=== PATIENT | female | born 1940 | race Caucasian/White ===

== ENCOUNTER 2017-06-01 20:18 | Inpatient (IN) | payer MEDICARE ==
[2017-06-01] MEDS ORDERED: Maalox 30 mL Cup PO PRN (21:33)
[2017-06-01] MEDS ORDERED: Magnesium Hydroxide (MOM) 30 mL UDC PO PRN (21:33)
[2017-06-01 21:34] VITALS: BP 139/67
[2017-06-02] MEDS: Levothyroxine 0.1 Mg Tab PO SCH (06:43)
[2017-06-02] MEDS: Pantoprazole 40 mg EC Tab PO SCH ×2 (10:23→17:20)
[2017-06-02] MEDS: Multivitamin Tab PO SCH ×2 (10:24→17:19)
[2017-06-02] MEDS: Potassium Chloride 20 mEq ER Tab PO SCH ×2 (10:24→17:26)
[2017-06-02] MEDS: Calcium Carb/Vit D 500 mg/200 U Tab PO SCH ×2 (10:24→17:19)
--- NOTE | 2017-06-02 11:19 | Psychosocial Evaluation ---
DATE OF SERVICE: AGE: 77. SEX: Female. PHYSICIAN: Dr. Dunn. CHIEF COMPLAINT: Confusion and agitation. HISTORY OF PRESENT ILLNESS: The patient is a 77-year-old female, who was transferred from [facility] because of increased agitation and because of confusion and irritability. After the patient was cleared medically, the patient was transferred to [facility] to continue her treatment. The patient is still angry and still confused and agitated and she is still unable to provide any safe plan for self-care. PAST PSYCHIATRIC HISTORY: Not known. PAST MEDICAL HISTORY: The patient has generalized weakness, which basically because of her inability to care for herself. SOCIAL HISTORY: No known alcohol or street drug use. MENTAL STATUS EXAMINATION: The patient appears older than his stated age. Anxious. Angry. In irritable mood. Thought processes are with poverty of speech. The patient did not answer question regarding hallucinations or delusions, but seems to be preoccupied. The patient is alert and unable to assess orientation or memory at this time because of her anger and irritability. Poor insight. Poor judgment. ASSESSMENT: PRIMARY DIAGNOSIS: Unspecified psychosis. MEDICAL DIAGNOSES: 1. Thrombocytopenia. 2. Hypothyroidism. 3. Rheumatoid arthritis. TREATMENT PLAN: We will monitor the patient's behavior and condition closely. Also, try to get more information from the patient and her family in regard to her treatment. The patient also will need placement. ESTIMATED LENGTH OF STAY: 7-10 days. STRENGTHS AND WEAKNESSES: The patient's strength is not clear at this time. Weaknesses are her confusion and her ineffective coping. AFTER DISCHARGE PLAN: Outpatient treatment and followup will continue as an outpatient. CRITERIA FOR DISCHARGE: The patient will not be psychotic and will stabilize psychotropic medications and will establish outpatient treatment plans. JOB# [id number]
--- NOTE | 2017-06-02 21:56 | History & Physical ---
ADMIT DATE: 06/01/2017 CHIEF COMPLAINT: Confusion. HISTORY OF PRESENT ILLNESS: A 77-year-old female, who has been transferred from [facility] after a lengthy stay there related to presentation of septic shock and bacteremia. During her hospital stay, the patient was noted to be confused, as well as history of alcohol abuse surfaced from the daughter's visit. The patient has now been transferred to psychiatric facility for further evaluation of the patient's alcohol abuse and ongoing encephalopathy. The patient is seen in the hospital bed. She was awake and pleasant, able to answer questions appropriately, although appears somewhat forgetful and disoriented. PAST MEDICAL HISTORY: The patient has history of rheumatoid arthritis and hypothyroidism. She apparently had not been taking her medications and had hormonal imbalance when she came to the hospital. She also was in septic shock from urinary tract infection and E. coli bacteremia, and was in acute renal failure. The patient's LFTs were also abnormal, likely multifactorial. The patient's renal function has returned to normal. The LFTs and cell count as well as some electrolyte imbalance persisted and will be monitored. MEDICATIONS: As per reconciliation. ALLERGIES: The patient has multiple allergies including to antibiotics such as ZOFRAN, PENICILLIN, CLINDAMYCIN, AND QUINOLONES. She is allergic also to IODINE, PHENOTHIAZINE, CONTRAST MEDIUM. SOCIAL HISTORY: The patient has no history of tobacco or illicit drug use. The patient apparently has a long history of alcohol abuse. FAMILY HISTORY: Noncontributory. REVIEW OF SYSTEMS: IMMUNOLOGIC: The patient has no history of recurrent infection. She has been on Remicade and methotrexate, which has resulted in her immunosuppression. CARDIOVASCULAR: No heart disease. The patient does have history of hypertension. GASTROINTESTINAL: No nausea, vomiting, or diarrhea. The patient is recovering from acute hepatitis. ENDOCRINE: The patient has thyroid disorder, no diabetes. NEUROLOGIC: No seizure or stroke. She does have metabolic encephalopathy. HEMATOLOGIC: No bleeding ____ disorder. The patient had some coagulopathy related to her sepsis. PHYSICAL EXAMINATION: GENERAL: The patient is awake and alert in no acute distress. VITAL SIGNS: Temperature 97.8, pulse 76, respirations 18, blood pressure 131/72. HEENT: Pupils equally round and reactive. Sclerae anicteric. NECK: Supple. No JVD. ____. HEART: S1, S2, regular rate and rhythm. ABDOMEN: Soft, nontender, positive bowel sounds. EXTREMITIES: No clubbing, cyanosis. Trace edema. NEUROLOGIC: Moves all extremities equally, no lateralizing signs. LABORATORY DATA: The patient apparently refused blood tests today. IMPRESSION: 1. Status post Escherichia coli bacteremia. 2. Status post renal failure. 3. Abnormal LFTs secondary to acute hepatitis, likely alcohol induced. 4. Hypothyroidism. 5. Severe protein malnutrition. 6. History of alcohol abuse. 7. Possible psychiatric disorder. PLAN: Continue to monitor the patient's liver function, renal function, and cell count. She will also have repeat of her blood cultures as followup after her antibiotic treatment. JOB# [id number]
[2017-06-03] MEDS: Levothyroxine 0.1 Mg Tab PO SCH (06:37)
[2017-06-03] MEDS: Potassium Chloride 20 mEq ER Tab PO SCH ×2 (09:05→17:07)
[2017-06-03] MEDS: Calcium Carb/Vit D 500 mg/200 U Tab PO SCH (09:05)
[2017-06-03] MEDS: Pantoprazole 40 mg EC Tab PO SCH (09:05)
[2017-06-03] MEDS: Multivitamin Tab PO SCH (09:06)
[2017-06-03 13:14] LABS: % LYMPHOCYTES 21.2 % (20.0-50.0); % MONOCYTES 6.9 % (2.0-10.0); % NEUTROPHILS 68.9 % (40.0-80.0); HEMATOCRIT 25.5 % (41.0-60); HEMOGLOBIN 8.7 gm/dL (12-16); MEAN CELL VOLUME 104.5 fl (81-100); MEAN CORPUSCULAR HEMOGLOBIN 35.6 pg (27.0-31.0); MEAN CORPUSCULAR HGB CONC 34.1 pg (28.0-36.0); MEAN PLATELET VOLUME 9.6 fl; RED BLOOD COUNT 2.44 Mil/cmm (3.80-5.20); RED CELL DISTRIBUTION WIDTH 14.2 % (11.5-20.0); WHITE BLOOD COUNT 8.7 Th/cmm (4.8-10.8)
[2017-06-03 13:20] LABS: PLATELET COUNT 79 Th/cmm (150-400)
--- NOTE | 2017-06-03 13:22 | General Progress Note ---
Subjective - Review of Systems Service Date: 06/03/17 Subjective: awake and alert daughter at bedside smiling and good mood eating pizza Objective - Physical Exam Vitals and I&O: Vital Signs Temp 98 F 06/03/17 06:42 Pulse 75 06/03/17 06:42 Resp 18 06/03/17 06:42 BP 145/69 06/03/17 06:42 Pulse Ox 97 06/03/17 06:42 Intake & Output 06/02/17 06/03/17 06/03/17 18:59 06:59 18:59 Intake Total 120 Balance 120 Intake: Oral 120 Other: # Voids 3 Active Medications: Current Medications Acetaminophen (Tylenol) 650 mg PO Q4HR PRN PRN Reason: Temp above 100 Stop: 07/31/17 21:32 Al Hydrox/Mg Hydrox/Simethicone (Maalox) 30 ml PO Q4HR PRN PRN Reason: GI DISTRESS Stop: 07/31/17 21:32 Calcium/Vitamin D (Oscal W/Vitamin D) 1 tab PO DAILY [facility] Stop: 08/01/17 08:59 Last Admin: 06/03/17 09:05 Dose: 1 tab Ibuprofen (Motrin) 600 mg PO Q6HR PRN PRN Reason: Pain (Mild) Stop: 08/01/17 00:00 Levothyroxine Sodium (Synthroid) 0.1 mg PO QDAC [facility] Stop: 08/01/17 07:29 Last Admin: 06/03/17 06:37 Dose: 0.1 mg Magnesium Hydroxide (Milk Of Magnesia) 30 ml PO HS PRN PRN Reason: Constipation Megestrol Acetate (Megace) 40 mg PO DAILY [facility] PRN Reason: Protocol Stop: 08/01/17 08:59 Last Admin: 06/03/17 09:06 Dose: 40 mg Multivitamins/Vitamin C (Theragran) 1 tab PO DAILY [facility] Stop: 08/01/17 08:59 Last Admin: 06/03/17 09:06 Dose: 1 tab Pantoprazole Sodium (Protonix) 40 mg PO DAILY [facility] Stop: 08/01/17 08:59 Last Admin: 06/03/17 09:05 Dose: 40 mg Potassium Chloride (Klor-Con) 40 meq PO BID [facility] Stop: 08/01/17 08:59 Last Admin: 06/03/17 09:05 Dose: 40 meq Quetiapine Fumarate (Seroquel) 12.5 mg PO TID [facility] PRN Reason: Protocol Stop: 08/01/17 08:59 Last Admin: 06/03/17 09:06 Dose: 12.5 mg General: Alert, No acute distress HEENT: Atraumatic, PERRLA Neck: Supple, JVD Cardiovascular: Regular rate, Normal S1, Normal S2 Lungs: Clear to auscultation Abdomen: Bowel sounds, Soft Extremities: Edema Neurological: Cranial nerves 3-12 NL Psych/Mental Status: Mood NL Assessment/Plan - Assessment Assessment: s/p septic shock Etoh abuse hypothyroidism thrombocytopenia anemia abn LFT's encephalopathy - Plan Plan: cont current treatment awaiting blood test results d/w daughter
[2017-06-03 13:33] LABS: ALB/GLOB RATIO 0.7 (1.0-1.8); ALKALINE PHOSPHATASE 200 U/L (34-104); ANION GAP 9.7 (7.0-16.0); BILIRUBIN,TOTAL 1.8 mg/dL (0.3-1.0); BUN - UREA NITROGEN 7 mg/dL (7-25); CALCIUM SERUM 6.3 mg/dL (8.6-10.3); CARBON DIOXIDE 21.7 mEq/L (21.0-31.0); CHLORIDE 114 mEq/L (98-107); CREATININE - SERUM 0.5 mg/dL (0.6-1.2); GLUCOSE 84 mg/dL (70-105); POTASSIUM SERUM 3.4 mEq/L (3.5-5.1); SGOT 70 U/L (13-39); SGPT/ALT 59 U/L (7-52); SODIUM SERUM 142 mEq/L (136-145)
--- NOTE | 2017-06-03 20:41 | Progress Notes ---
DATE: 06/03/2017 SUBJECTIVE: Chart reviewed and the patient interviewed. Also discussed the patient's condition with the staff and reviewed records and labs. The patient continues to be confused and still seems to be disoriented. The patient also is still angry and is still in irritable mood and easily agitated. The patient also is minimizing her problems and she is suspicious and is paranoid. She also is easily agitated and irritable and is uncooperative with the staff. On the other hand, the patient is compliant with taking her medications with no side effects of medications. The patient was started on Seroquel in a dose of 12.5 mg 3 times a day with no side effects. ASSESSMENT: The patient is still psychotic and still considered to be gravely disabled. TREATMENT PLAN: Continue monitoring her behavior and her condition closely. Also, continue to work on her ineffective coping and her confusion. Also, working on discharge plans and possible placement issue. I spoke with the family when they were in [facility] and they are in agreement that the patient will need placement and will work on that with the patient, as well as her family. JOB# [id number]
[2017-06-04] MEDS: Levothyroxine 0.1 Mg Tab PO SCH (06:34)
[2017-06-04] MEDS: Potassium Chloride 20 mEq ER Tab PO SCH ×2 (08:27→16:22)
[2017-06-04] MEDS: Multivitamin Tab PO SCH ×2 (08:28→08:36)
[2017-06-04] MEDS: Pantoprazole 40 mg EC Tab PO SCH (08:28)
[2017-06-04] MEDS: Calcium Carb/Vit D 500 mg/200 U Tab PO SCH (08:28)
--- NOTE | 2017-06-04 21:48 | Progress Notes ---
DATE: 06/04/2017 SUBJECTIVE: Chart reviewed and the patient interviewed. Also discussed the patient's condition with the staff and reviewed records and labs. The patient is still delusional and paranoid. The patient today was thinking that "people are messing with my bed." The patient said that are two men, who came in the middle of the night to her room and they were messing with her bed and playing with her bed. She denies any body touch or any accuse issues, but she thought that there was somebody in her room. She also continued to be suspicious and continued to be paranoid. ASSESSMENT: The patient is still psychotic. TREATMENT PLAN: We will continue monitoring her behavior and her condition closely. Also, continue Seroquel at a dose of 12.5 mg 3 times a day and adjusting the dose. Also discussed with binder caser possible placement issue and discharge plans; and we will continue to follow up. JOB# [id number]
[2017-06-05] MEDS: Levothyroxine 0.1 Mg Tab PO SCH (06:32)
[2017-06-05] MEDS: Calcium Carb/Vit D 500 mg/200 U Tab PO SCH (09:14)
[2017-06-05] MEDS: Multivitamin Tab PO SCH (09:14)
[2017-06-05] MEDS: Potassium Chloride 20 mEq ER Tab PO SCH ×2 (09:14→17:21)
[2017-06-05] MEDS: Pantoprazole 40 mg EC Tab PO SCH (09:16)
--- NOTE | 2017-06-05 15:01 | Internal Medicine Prog Note ---
Internal Medicine Subjective - Subjective Service Date: 06/05/17 Patient seen and examined:: with staff Patient is:: awake, verbal, talking Per staff patient has:: no adverse event Internal Medicine Objective - Results Result Diagrams: 06/03/17 13:00 06/03/17 13:00 Recent Labs: Laboratory Last Values WBC 8.7 Th/cmm (4.8-10.8) 06/03/17 13:00 RBC 2.44 Mil/cmm (3.80-5.20) L 06/03/17 13:00 Hgb 8.7 gm/dL (12-16) L 06/03/17 13:00 Hct 25.5 % (41.0-60) L 06/03/17 13:00 MCV 104.5 fl (81-100) H 06/03/17 13:00 MCH 35.6 pg (27.0-31.0) H 06/03/17 13:00 MCHC Differential 34.1 pg (28.0-36.0) 06/03/17 13:00 RDW 14.2 % (11.5-20.0) 06/03/17 13:00 Plt Count 79 Th/cmm (150-400) L 06/03/17 13:00 MPV 9.6 fl 06/03/17 13:00 Neutrophils % 68.9 % (40.0-80.0) 06/03/17 13:00 Lymphocytes % 21.2 % (20.0-50.0) 06/03/17 13:00 Monocytes % 6.9 % (2.0-10.0) 06/03/17 13:00 Eosinophils % 3.0 % (0.0-5.0) 06/03/17 13:00 Basophils % 0.0 % (0.0-2.0) 06/03/17 13:00 Sodium 142 mEq/L (136-145) 06/03/17 13:00 Potassium 3.4 mEq/L (3.5-5.1) L 06/03/17 13:00 Chloride 114 mEq/L (98-107) H 06/03/17 13:00 Carbon Dioxide 21.7 mEq/L (21.0-31.0) 06/03/17 13:00 Anion Gap 9.7 (7.0-16.0) 06/03/17 13:00 BUN 7 mg/dL (7-25) 06/03/17 13:00 Creatinine 0.5 mg/dL (0.6-1.2) L 06/03/17 13:00 Est GFR ( Amer) TNP 06/03/17 13:00 Est GFR (Non-Af Amer) TNP 06/03/17 13:00 BUN/Creatinine Ratio 14.0 06/03/17 13:00 Glucose 84 mg/dL (70-105) 06/03/17 13:00 Calcium 6.3 mg/dL (8.6-10.3) L 06/03/17 13:00 Total Bilirubin 1.8 mg/dL (0.3-1.0) H 06/03/17 13:00 AST 70 U/L (13-39) H 06/03/17 13:00 ALT 59 U/L (7-52) H 06/03/17 13:00 Alkaline Phosphatase 200 U/L (34-104) H 06/03/17 13:00 Ammonia 39 umol/L (16-53) 06/03/17 13:00 Total Protein 5.6 gm/dL (6.0-8.3) L 06/03/17 13:00 Albumin 2.3 gm/dL (3.7-5.3) L 06/03/17 13:00 Globulin 3.3 gm/dL 06/03/17 13:00 Albumin/Globulin Ratio 0.7 (1.0-1.8) L 06/03/17 13:00 - Physical Exam Vitals and I&O: Vital Signs Temp 98.5 F 06/05/17 06:33 Pulse 76 06/05/17 06:33 Resp 19 06/05/17 06:33 BP 145/73 06/05/17 06:33 Pulse Ox 98 06/05/17 06:33 Intake & Output 06/04/17 06/05/17 06/05/17 18:59 06:59 18:59 Intake Total 960 360 Balance 960 360 Intake: Oral 960 360 Other: # Voids 3 2 # Bowel Movements 1 Active Medications: Current Medications Acetaminophen (Tylenol) 650 mg PO Q4HR PRN PRN Reason: Temp above 100 Stop: 07/31/17 21:32 Last Admin: 06/03/17 20:56 Dose: 650 mg Al Hydrox/Mg Hydrox/Simethicone (Maalox) 30 ml PO Q4HR PRN PRN Reason: GI DISTRESS Stop: 07/31/17 21:32 Calcium/Vitamin D (Oscal W/Vitamin D) 1 tab PO DAILY [facility] Stop: 08/01/17 08:59 Last Admin: 06/05/17 09:14 Dose: Not Given Ibuprofen (Motrin) 600 mg PO Q6HR PRN PRN Reason: Pain (Mild) Stop: 08/01/17 00:00 Levothyroxine Sodium (Synthroid) 0.1 mg PO QDAC [facility] Stop: 08/01/17 07:29 Last Admin: 06/05/17 06:32 Dose: 0.1 mg Magnesium Hydroxide (Milk Of Magnesia) 30 ml PO HS PRN PRN Reason: Constipation Megestrol Acetate (Megace) 40 mg PO DAILY [facility] PRN Reason: Protocol Stop: 08/01/17 08:59 Last Admin: 06/05/17 09:14 Dose: 40 mg Multivitamins/Vitamin C (Theragran) 1 tab PO DAILY [facility] Stop: 08/01/17 08:59 Last Admin: 06/05/17 09:14 Dose: Not Given Pantoprazole Sodium (Protonix) 40 mg PO DAILY [facility] Stop: 08/01/17 08:59 Last Admin: 06/05/17 09:16 Dose: Not Given Potassium Chloride (Klor-Con) 40 meq PO BID [facility] Stop: 08/01/17 08:59 Last Admin: 06/05/17 09:14 Dose: 40 meq Quetiapine Fumarate (Seroquel) 12.5 mg PO TID [facility] PRN Reason: Protocol Stop: 08/01/17 08:59 Last Admin: 06/05/17 14:25 Dose: 12.5 mg General: alert HEENT: NC/AT, PERRLA, EOMI, anicteric sclerae, throat clear Neck: Supple, No JVD, No thyromegaly, +2 carotid pulse wo bruit, No LAD Lungs: CTAB Cardiovascular: RRR, Normal S1, Normal S2, without murmur Abdomen: soft, non-tender, non-distended Extremities: clear Neurological: no change Internal Medicine Assmt/Plan - Assessment Assessment: 1.HYPOTHYROIDISIM. 2.ANEMIA. \3.PSYCHOSIS. - Plan Plan: CONTINUE ON CURRENT MEDICATION AND DIET.
--- NOTE | 2017-06-05 21:33 | Progress Notes ---
DATE: 06/05/2017 SUBJECTIVE: Chart reviewed and the patient interviewed. Also discussed the patient's condition with the staff and reviewed records and labs. The patient continued to be delusional, suspicious, and paranoid. The patient also is still thinking that people are trying to abuse her and harm her. She also is still actively responding to stimuli. She also is staying alone by herself. She is forgetful and needs lots of redirections. ASSESSMENT: The patient is still forgetful and considered to be gravely disabled. TREATMENT PLAN: We will continue to monitor her behavior and her condition closely. Also, continue to work on her ineffective coping and on her psychosis and her placement issue. [facility]# [id number]
[2017-06-06] MEDS: Levothyroxine 0.1 Mg Tab PO SCH (06:30)
[2017-06-06] MEDS: Calcium Carb/Vit D 500 mg/200 U Tab PO SCH (08:34)
[2017-06-06] MEDS: Potassium Chloride 20 mEq ER Tab PO SCH ×2 (08:35→17:25)
[2017-06-06] MEDS: Pantoprazole 40 mg EC Tab PO SCH (08:36)
[2017-06-06] MEDS: Multivitamin Tab PO SCH (08:42)
--- NOTE | 2017-06-06 18:13 | Progress Notes ---
DATE: 06/06/2017 SUBJECTIVE: Chart reviewed and the patient interviewed. Also discussed the patient's condition with the staff and reviewed records and labs. The patient is still in a depressed mood and she is still isolative. The patient also is feeling hopeless and is still having difficulty expressing herself or verbalizing her feelings. She also is still withdrawn. She also still needs redirections. Otherwise, the patient is compliant with taking her medications with no side effects of medications. The patient is slightly shaky today. She also seems to be slightly sedated. ASSESSMENT: The patient is still psychotic and needs close monitoring. Also, working on discharge plans and placement issue. TREATMENT PLAN: We will continue monitoring her behavior and her condition closely. Also, we will change Seroquel to 12.5 mg twice a day and we will continue to follow up closely. JOB# [id number]
--- NOTE | 2017-06-06 19:31 | Internal Medicine Prog Note ---
Internal Medicine Subjective - Subjective Service Date: 06/06/17 Patient seen and examined:: without staff Patient is:: awake, verbal, talking Per staff patient has:: no adverse event Internal Medicine Objective - Results Result Diagrams: 06/03/17 13:00 06/03/17 13:00 Recent Labs: Laboratory Last Values WBC 8.7 Th/cmm (4.8-10.8) 06/03/17 13:00 RBC 2.44 Mil/cmm (3.80-5.20) L 06/03/17 13:00 Hgb 8.7 gm/dL (12-16) L 06/03/17 13:00 Hct 25.5 % (41.0-60) L 06/03/17 13:00 MCV 104.5 fl (81-100) H 06/03/17 13:00 MCH 35.6 pg (27.0-31.0) H 06/03/17 13:00 MCHC Differential 34.1 pg (28.0-36.0) 06/03/17 13:00 RDW 14.2 % (11.5-20.0) 06/03/17 13:00 Plt Count 79 Th/cmm (150-400) L 06/03/17 13:00 MPV 9.6 fl 06/03/17 13:00 Neutrophils % 68.9 % (40.0-80.0) 06/03/17 13:00 Lymphocytes % 21.2 % (20.0-50.0) 06/03/17 13:00 Monocytes % 6.9 % (2.0-10.0) 06/03/17 13:00 Eosinophils % 3.0 % (0.0-5.0) 06/03/17 13:00 Basophils % 0.0 % (0.0-2.0) 06/03/17 13:00 Sodium 142 mEq/L (136-145) 06/03/17 13:00 Potassium 3.4 mEq/L (3.5-5.1) L 06/03/17 13:00 Chloride 114 mEq/L (98-107) H 06/03/17 13:00 Carbon Dioxide 21.7 mEq/L (21.0-31.0) 06/03/17 13:00 Anion Gap 9.7 (7.0-16.0) 06/03/17 13:00 BUN 7 mg/dL (7-25) 06/03/17 13:00 Creatinine 0.5 mg/dL (0.6-1.2) L 06/03/17 13:00 Est GFR ( Amer) TNP 06/03/17 13:00 Est GFR (Non-Af Amer) TNP 06/03/17 13:00 BUN/Creatinine Ratio 14.0 06/03/17 13:00 Glucose 84 mg/dL (70-105) 06/03/17 13:00 Calcium 6.3 mg/dL (8.6-10.3) L 06/03/17 13:00 Total Bilirubin 1.8 mg/dL (0.3-1.0) H 06/03/17 13:00 AST 70 U/L (13-39) H 06/03/17 13:00 ALT 59 U/L (7-52) H 06/03/17 13:00 Alkaline Phosphatase 200 U/L (34-104) H 06/03/17 13:00 Ammonia 39 umol/L (16-53) 06/03/17 13:00 Total Protein 5.6 gm/dL (6.0-8.3) L 06/03/17 13:00 Albumin 2.3 gm/dL (3.7-5.3) L 06/03/17 13:00 Globulin 3.3 gm/dL 06/03/17 13:00 Albumin/Globulin Ratio 0.7 (1.0-1.8) L 06/03/17 13:00 - Physical Exam Vitals and I&O: Vital Signs Temp 97.4 F 06/06/17 14:00 Pulse 86 06/06/17 14:00 Resp 20 06/06/17 14:00 BP 135/68 06/06/17 14:00 Pulse Ox 98 06/06/17 14:00 Intake & Output 06/06/17 06/06/17 06/07/17 06:59 18:59 06:59 Intake Total 1800 Balance 1800 Intake: Oral 1800 Other: # Voids 3 3 # Bowel Movements 0 0 Active Medications: Current Medications Acetaminophen (Tylenol) 650 mg PO Q4HR PRN PRN Reason: Temp above 100 Stop: 07/31/17 21:32 Last Admin: 06/06/17 05:57 Dose: 650 mg Al Hydrox/Mg Hydrox/Simethicone (Maalox) 30 ml PO Q4HR PRN PRN Reason: GI DISTRESS Stop: 07/31/17 21:32 Calcium/Vitamin D (Oscal W/Vitamin D) 1 tab PO DAILY [facility] Stop: 08/01/17 08:59 Last Admin: 06/06/17 08:34 Dose: 1 tab Ibuprofen (Motrin) 600 mg PO Q6HR PRN PRN Reason: Pain (Mild) Stop: 08/01/17 00:00 Levothyroxine Sodium (Synthroid) 0.1 mg PO QDAC [facility] Stop: 08/01/17 07:29 Last Admin: 06/06/17 06:30 Dose: 0.1 mg Magnesium Hydroxide (Milk Of Magnesia) 30 ml PO HS PRN PRN Reason: Constipation Megestrol Acetate (Megace) 40 mg PO DAILY [facility] PRN Reason: Protocol Stop: 08/01/17 08:59 Last Admin: 06/06/17 08:35 Dose: 40 mg Multivitamins/Vitamin C (Theragran) 1 tab PO DAILY [facility] Stop: 08/01/17 08:59 Last Admin: 06/06/17 08:42 Dose: Not Given Pantoprazole Sodium (Protonix) 40 mg PO DAILY [facility] Stop: 08/01/17 08:59 Last Admin: 06/06/17 08:36 Dose: 40 mg Potassium Chloride (Klor-Con) 40 meq PO BID [facility] Stop: 08/01/17 08:59 Last Admin: 06/06/17 17:25 Dose: 40 meq Quetiapine Fumarate (Seroquel) 12.5 mg PO BID [facility] PRN Reason: Protocol Stop: 08/05/17 16:59 Last Admin: 06/06/17 17:25 Dose: 12.5 mg General: alert HEENT: NC/AT, PERRLA, EOMI, anicteric sclerae, throat clear Neck: Supple, No JVD, No thyromegaly, +2 carotid pulse wo bruit, No LAD Lungs: CTAB Cardiovascular: RRR, Normal S1, Normal S2, without murmur Abdomen: soft, non-tender, non-distended Extremities: clear Neurological: no change Internal Medicine Assmt/Plan - Assessment Assessment: 1.HYPOTHYROIDISIM. 2.ANEMIA. \3.PSYCHOSIS. - Plan Plan: CONTINUE ON CURRENT MEDICATION AND DIET.
[2017-06-07] MEDS: Levothyroxine 0.1 Mg Tab PO SCH (06:48)
[2017-06-07] MEDS: Calcium Carb/Vit D 500 mg/200 U Tab PO SCH (08:19)
[2017-06-07] MEDS: Pantoprazole 40 mg EC Tab PO SCH (08:20)
[2017-06-07] MEDS: Potassium Chloride 20 mEq ER Tab PO SCH ×2 (08:20→16:30)
[2017-06-07] MEDS: Multivitamin Tab PO SCH (08:21)
--- NOTE | 2017-06-07 15:56 | General Progress Note ---
Subjective - Review of Systems Service Date: 06/07/17 Subjective: awake and alert smiling and good mood Objective - Results Result Diagrams: 06/03/17 13:00 06/03/17 13:00 Recent Labs: Laboratory Last Values WBC 8.7 Th/cmm (4.8-10.8) 06/03/17 13:00 RBC 2.44 Mil/cmm (3.80-5.20) L 06/03/17 13:00 Hgb 8.7 gm/dL (12-16) L 06/03/17 13:00 Hct 25.5 % (41.0-60) L 06/03/17 13:00 MCV 104.5 fl (81-100) H 06/03/17 13:00 MCH 35.6 pg (27.0-31.0) H 06/03/17 13:00 MCHC Differential 34.1 pg (28.0-36.0) 06/03/17 13:00 RDW 14.2 % (11.5-20.0) 06/03/17 13:00 Plt Count 79 Th/cmm (150-400) L 06/03/17 13:00 MPV 9.6 fl 06/03/17 13:00 Neutrophils % 68.9 % (40.0-80.0) 06/03/17 13:00 Lymphocytes % 21.2 % (20.0-50.0) 06/03/17 13:00 Monocytes % 6.9 % (2.0-10.0) 06/03/17 13:00 Eosinophils % 3.0 % (0.0-5.0) 06/03/17 13:00 Basophils % 0.0 % (0.0-2.0) 06/03/17 13:00 Sodium 142 mEq/L (136-145) 06/03/17 13:00 Potassium 3.4 mEq/L (3.5-5.1) L 06/03/17 13:00 Chloride 114 mEq/L (98-107) H 06/03/17 13:00 Carbon Dioxide 21.7 mEq/L (21.0-31.0) 06/03/17 13:00 Anion Gap 9.7 (7.0-16.0) 06/03/17 13:00 BUN 7 mg/dL (7-25) 06/03/17 13:00 Creatinine 0.5 mg/dL (0.6-1.2) L 06/03/17 13:00 Est GFR ( Amer) TNP 06/03/17 13:00 Est GFR (Non-Af Amer) TNP 06/03/17 13:00 BUN/Creatinine Ratio 14.0 06/03/17 13:00 Glucose 84 mg/dL (70-105) 06/03/17 13:00 Calcium 6.3 mg/dL (8.6-10.3) L 06/03/17 13:00 Total Bilirubin 1.8 mg/dL (0.3-1.0) H 06/03/17 13:00 AST 70 U/L (13-39) H 06/03/17 13:00 ALT 59 U/L (7-52) H 06/03/17 13:00 Alkaline Phosphatase 200 U/L (34-104) H 06/03/17 13:00 Ammonia 39 umol/L (16-53) 06/03/17 13:00 Total Protein 5.6 gm/dL (6.0-8.3) L 06/03/17 13:00 Albumin 2.3 gm/dL (3.7-5.3) L 06/03/17 13:00 Globulin 3.3 gm/dL 06/03/17 13:00 Albumin/Globulin Ratio 0.7 (1.0-1.8) L 06/03/17 13:00 - Physical Exam Vitals and I&O: Vital Signs Temp 98.8 F 06/07/17 15:29 Pulse 84 06/07/17 15:29 Resp 20 06/07/17 15:29 BP 129/71 06/07/17 15:29 Pulse Ox 96 06/07/17 15:29 Intake & Output 06/06/17 06/07/17 06/07/17 18:59 06:59 18:59 Intake Total 1800 240 Balance 1800 240 Intake: Oral 1800 240 Other: # Voids 3 3 # Bowel Movements 0 0 Active Medications: Current Medications Acetaminophen (Tylenol) 650 mg PO Q4HR PRN PRN Reason: Temp above 100 Stop: 07/31/17 21:32 Last Admin: 06/06/17 05:57 Dose: 650 mg Al Hydrox/Mg Hydrox/Simethicone (Maalox) 30 ml PO Q4HR PRN PRN Reason: GI DISTRESS Stop: 07/31/17 21:32 Calcium/Vitamin D (Oscal W/Vitamin D) 1 tab PO DAILY [facility] Stop: 08/01/17 08:59 Last Admin: 06/07/17 08:19 Dose: 1 tab Ibuprofen (Motrin) 600 mg PO Q6HR PRN PRN Reason: Pain (Mild) Stop: 08/01/17 00:00 Levothyroxine Sodium (Synthroid) 0.1 mg PO QDAC [facility] Stop: 08/01/17 07:29 Last Admin: 06/07/17 06:48 Dose: 0.1 mg Magnesium Hydroxide (Milk Of Magnesia) 30 ml PO HS PRN PRN Reason: Constipation Megestrol Acetate (Megace) 40 mg PO DAILY [facility] PRN Reason: Protocol Stop: 08/01/17 08:59 Last Admin: 06/07/17 08:19 Dose: 40 mg Multivitamins/Vitamin C (Theragran) 1 tab PO DAILY [facility] Stop: 08/01/17 08:59 Last Admin: 06/07/17 08:21 Dose: Not Given Pantoprazole Sodium (Protonix) 40 mg PO DAILY [facility] Stop: 08/01/17 08:59 Last Admin: 06/07/17 08:20 Dose: 40 mg Potassium Chloride (Klor-Con) 40 meq PO BID [facility] Stop: 08/01/17 08:59 Last Admin: 06/07/17 08:20 Dose: 40 meq Quetiapine Fumarate (Seroquel) 12.5 mg PO BID [facility] PRN Reason: Protocol Stop: 08/05/17 16:59 Last Admin: 06/07/17 08:19 Dose: 12.5 mg General: Alert, No acute distress HEENT: Atraumatic, PERRLA Neck: Supple, JVD Cardiovascular: Regular rate, Normal S1, Normal S2 Lungs: Clear to auscultation Abdomen: Bowel sounds, Soft Extremities: Edema Neurological: Cranial nerves 3-12 NL Psych/Mental Status: Mood NL Assessment/Plan - Assessment Assessment: s/p septic shock Etoh abuse hypothyroidism thrombocytopenia anemia abn LFT's encephalopathy - Plan Plan: cont current treatment awaiting blood test results d/w daughter
--- NOTE | 2017-06-07 19:01 | Progress Notes ---
DATE: 06/07/2017 HISTORY OF PRESENT ILLNESS: This is a 77-year-old female under the care of Dr. Dunn, brought from the hospital due to increased agitation, confusion, irritability. The patient is denying that she is in a psychiatric hospital, states, "I am not going to argue with you, but I am not in a psych hospital." States she is here because she is "sick." She states she is trying to "get rest." She is quite irritable and upset and not really engaging in interview with this clinician. The patient remains depressed, isolative. Dr. Dunn saw the patient over the weekend, noted that she remained hopeless, withdrawn, irritable, isolative. ASSESSMENT: The patient remains confused, disoriented, irritable. Dr. Dunn recently made medication adjustments. We will continue to monitor closely. The patient is not safe for a lower level of care due to her ongoing symptoms, which appear to be confusion and irritability, and possible psychotic process. [facility]# [id number]
[2017-06-08] MEDS: Levothyroxine 0.1 Mg Tab PO SCH (06:47)
[2017-06-08] MEDS: Pantoprazole 40 mg EC Tab PO SCH ×2 (09:04→11:29)
[2017-06-08] MEDS: Calcium Carb/Vit D 500 mg/200 U Tab PO SCH ×2 (09:04→11:28)
[2017-06-08] MEDS: Potassium Chloride 20 mEq ER Tab PO SCH ×3 (09:05→16:12)
[2017-06-08 14:20] LABS: % BASOPHILS 0.1 % (0.0-2.0); % EOSINOPHILS 0.8 % (0.0-5.0); % LYMPHOCYTES 25.8 % (20.0-50.0); % NEUTROPHILS 63.3 % (40.0-80.0); HEMATOCRIT 25.8 % (41.0-60); HEMOGLOBIN 8.9 gm/dL (12-16); MEAN CORPUSCULAR HEMOGLOBIN 36.4 pg (27.0-31.0); MEAN CORPUSCULAR HGB CONC 34.6 pg (28.0-36.0); MEAN PLATELET VOLUME 8.9 fl; NEUTROPHILE ABSOLUTE 3.8 Th/cmm (1.8-8.0); RED BLOOD COUNT 2.46 Mil/cmm (3.80-5.20); RED CELL DISTRIBUTION WIDTH 14.1 % (11.5-20.0); WHITE BLOOD COUNT 5.9 Th/cmm (4.8-10.8)
[2017-06-08 14:33] LABS: ALB/GLOB RATIO 0.7 (1.0-1.8); ALKALINE PHOSPHATASE 146 U/L (34-104); ANION GAP 11.2 (7.0-16.0); BILIRUBIN,TOTAL 1.4 mg/dL (0.3-1.0); BUN - UREA NITROGEN 6 mg/dL (7-25); BUN/CREATININE RATIO 7.5; CALCIUM SERUM 8.9 mg/dL (8.6-10.3); CARBON DIOXIDE 17.7 mEq/L (21.0-31.0); CHLORIDE 111 mEq/L (98-107); CREATININE - SERUM 0.8 mg/dL (0.6-1.2); GLUCOSE 144 mg/dL (70-105); POTASSIUM SERUM 3.9 mEq/L (3.5-5.1); SGOT 69 U/L (13-39); SGPT/ALT 42 U/L (7-52); SODIUM SERUM 136 mEq/L (136-145)
[2017-06-08 14:37] LABS: PLATELET COUNT 237 Th/cmm (150-400)
--- NOTE | 2017-06-08 19:55 | Progress Notes ---
DATE: 06/08/2017 SUBJECTIVE: The patient was seen, chart reviewed, and discussed with staff. The patient is currently in the hospital, confusion, irritability, agitation, coming from [facility], angry, irritable, not really quite sure why she is here. She told me yesterday she is here because she is "sick." Now telling me that she has Raynaud and a lot of "stress" and weight loss, also alcoholism, noted to be angry, irritable, stating she lives in ____home_ by herself. Sleeping fairly well, eating well. She is pretty isolative and withdrawn. No overt SI or HI. ASSESSMENT: The patient remains irritable, upset, angry, still labile, concerns about her ability to care for her basic needs. The patient was making some odd statements to Dr. Dunn last week. The patient remains symptomatic, labile, angry, irritable, possible psychotic symptoms. PLAN: Continue to monitor and titrate medications as tolerated. [facility]# [id number] [facility]
[2017-06-09] MEDS: Levothyroxine 0.1 Mg Tab PO SCH (07:00)
[2017-06-09] MEDS: Potassium Chloride 20 mEq ER Tab PO SCH ×2 (08:29→17:55)
[2017-06-09] MEDS: Pantoprazole 40 mg EC Tab PO SCH (08:29)
[2017-06-09] MEDS: Calcium Carb/Vit D 500 mg/200 U Tab PO SCH (08:29)
[2017-06-09 08:45] LABS: MEAN CELL VOLUME 105.2 fl (81-100)
--- NOTE | 2017-06-09 20:37 | Internal Medicine Prog Note ---
Internal Medicine Subjective - Subjective Service Date: 06/09/17 Patient seen and examined:: with staff Patient is:: awake, verbal, talking Per staff patient has:: no adverse event Internal Medicine Objective - Results Result Diagrams: 06/08/17 14:11 06/08/17 14:11 Recent Labs: Laboratory Last Values WBC 5.9 Th/cmm (4.8-10.8) D 06/08/17 14:11 RBC 2.46 Mil/cmm (3.80-5.20) L 06/08/17 14:11 Hgb 8.9 gm/dL (12-16) L 06/08/17 14:11 Hct 25.8 % (41.0-60) L 06/08/17 14:11 MCV 105.2 fl (81-100) H 06/08/17 14:11 MCH 36.4 pg (27.0-31.0) H 06/08/17 14:11 MCHC Differential 34.6 pg (28.0-36.0) 06/08/17 14:11 RDW 14.1 % (11.5-20.0) 06/08/17 14:11 Plt Count 237 Th/cmm (150-400) D 06/08/17 14:11 MPV 8.9 fl 06/08/17 14:11 Neutrophils % 63.3 % (40.0-80.0) 06/08/17 14:11 Lymphocytes % 25.8 % (20.0-50.0) 06/08/17 14:11 Monocytes % 10.0 % (2.0-10.0) 06/08/17 14:11 Eosinophils % 0.8 % (0.0-5.0) 06/08/17 14:11 Basophils % 0.1 % (0.0-2.0) 06/08/17 14:11 Sodium 136 mEq/L (136-145) 06/08/17 14:11 Potassium 3.9 mEq/L (3.5-5.1) 06/08/17 14:11 Chloride 111 mEq/L (98-107) H 06/08/17 14:11 Carbon Dioxide 17.7 mEq/L (21.0-31.0) L 06/08/17 14:11 Anion Gap 11.2 (7.0-16.0) 06/08/17 14:11 BUN 6 mg/dL (7-25) L 06/08/17 14:11 Creatinine 0.8 mg/dL (0.6-1.2) 06/08/17 14:11 Est GFR ( Amer) TNP 06/08/17 14:11 Est GFR (Non-Af Amer) TNP 06/08/17 14:11 BUN/Creatinine Ratio 7.5 06/08/17 14:11 Glucose 144 mg/dL (70-105) H 06/08/17 14:11 Calcium 8.9 mg/dL (8.6-10.3) 06/08/17 14:11 Total Bilirubin 1.4 mg/dL (0.3-1.0) H 06/08/17 14:11 AST 69 U/L (13-39) H 06/08/17 14:11 ALT 42 U/L (7-52) 06/08/17 14:11 Alkaline Phosphatase 146 U/L (34-104) H 06/08/17 14:11 Ammonia 39 umol/L (16-53) 06/03/17 13:00 Total Protein 6.8 gm/dL (6.0-8.3) 06/08/17 14:11 Albumin 2.8 gm/dL (3.7-5.3) L 06/08/17 14:11 Globulin 4.0 gm/dL 06/08/17 14:11 Albumin/Globulin Ratio 0.7 (1.0-1.8) L 06/08/17 14:11 - Physical Exam Vitals and I&O: Vital Signs Temp 98.1 F 06/09/17 20:00 Pulse 96 06/09/17 20:00 Resp 18 06/09/17 20:00 BP 130/76 06/09/17 20:00 Pulse Ox 98 06/09/17 20:00 Intake & Output 06/09/17 06/09/17 06/10/17 06:59 18:59 06:59 Intake Total 240 1100 Balance 240 1100 Intake: Oral 240 1100 Other: # Voids 3 3 # Bowel Movements 0 1 Active Medications: Current Medications Acetaminophen (Tylenol) 650 mg PO Q4HR PRN PRN Reason: Temp above 100 Stop: 07/31/17 21:32 Last Admin: 06/06/17 05:57 Dose: 650 mg Al Hydrox/Mg Hydrox/Simethicone (Maalox) 30 ml PO Q4HR PRN PRN Reason: GI DISTRESS Stop: 07/31/17 21:32 Calcium/Vitamin D (Oscal W/Vitamin D) 1 tab PO DAILY [facility] Stop: 08/01/17 08:59 Last Admin: 06/09/17 08:29 Dose: 1 tab Ibuprofen (Motrin) 600 mg PO Q6HR PRN PRN Reason: Pain (Mild) Stop: 08/01/17 00:00 Levothyroxine Sodium (Synthroid) 0.1 mg PO QDAC [facility] Stop: 08/01/17 07:29 Last Admin: 06/09/17 07:00 Dose: 0.1 mg Magnesium Hydroxide (Milk Of Magnesia) 30 ml PO HS PRN PRN Reason: Constipation Megestrol Acetate (Megace) 40 mg PO DAILY [facility] PRN Reason: Protocol Stop: 08/01/17 08:59 Last Admin: 06/09/17 08:29 Dose: 40 mg Pantoprazole Sodium (Protonix) 40 mg PO DAILY [facility] Stop: 08/01/17 08:59 Last Admin: 06/09/17 08:29 Dose: 40 mg Potassium Chloride (Klor-Con) 40 meq PO BID [facility] Stop: 08/01/17 08:59 Last Admin: 06/09/17 17:55 Dose: 40 meq Quetiapine Fumarate (Seroquel) 12.5 mg PO BID D[facility]IN PRN Reason: Protocol Stop: 08/05/17 16:59 Last Admin: 06/09/17 17:55 Dose: 12.5 mg General: alert HEENT: NC/AT, PERRLA, EOMI, anicteric sclerae, throat clear Neck: Supple, No JVD, No thyromegaly, +2 carotid pulse wo bruit, No LAD Lungs: CTAB Cardiovascular: RRR, Normal S1, Normal S2, without murmur Abdomen: soft, non-tender, non-distended Extremities: clear Neurological: no change Internal Medicine Assmt/Plan - Assessment Assessment: 1.HYPOTHYROIDISIM. 2.ANEMIA. \\3.PSYCHOSIS. - Plan Plan: CONTINUE ON CURRENT MEDICATION AND DIET. Nutritional Asmnt/Malnutr-PDOC - Dietary Evaluation Malnutrition Findings (Please click <Entered> for more info): Nutritional Asmnt/Malnutrition Start: 06/08/17 18: 20 Text: Status: Complete Freq: Document 06/08/17 18:20 GSUN (Rec: 06/08/17 18:32 [email or web address] [email or web address]) Nutritional Asmnt/Malnutrition Patient General Information Nutritional Screening Diagnosis Diagnosis Unspecified psychosis Pertinent Medical Hx/Surgical Hx Rheumatoid arthritis, hypothyroidism, hx alcohol abuse, encephalopathy, s/p e coli bacteremia, s/p renal failure Subjective Information 77 year old female. Spoek to pt sitting in chair in rec room with all belongings with her. Pt appeared upset, expressed wanting to go home, ignored most of telegraphic typewriter operator chief's questions. Avg PO intake 65% of meals since adm, meeting nutritinoal needs. Pt stated " I will not eat until I go home ," telegraphic typewriter operator chief explained importance of nutrition and that meals will be provided even if pt does not wish to eat, pt nodded. Pt's daughter visits and brings food for pt. No muscle fat wasting noted. Current Diet Order/ Nutrition Support Regular Pertinent Medications Oscal W/Vitamin D, MOM, Megace , Protonix, Klor-Con, Seroquel Pertinent Labs Reviewed. Nutritional Hx/Data Height 1.45 m Height (Calculated Centimeters) 144.8 Current Weight (lbs) 49.895 kg Weight (Calculated Kilograms) 49.9 Weight (Calculated Grams) 95986.2 Weight Status Approriate GI Symptoms Skin Integrity/Comment: Vamshi Friend. Skin intact. Current %PO Fair (50-74%) Estimated Nutritional Goals BEE in Kcals: Using Current wt Calories/Kcals/Kg CBW 110lb/50kg Kcals Calculated 1250-1500kcal (25-30kcal/kg) Protein: Using Current wt Protein Calculated 50g (1g/kg) Fluid: ml 1250-1500ml (1ml/kcal) Nutritional Problem 1. Problem Problem No nutritinoal problem at this time. Intervention/Recommendation Comments 1. Continue with current diet order. Avg PO intake is adequate. Expected Outcomes/Goals Expected Outcomes/Goals 1. PO intake continue to meet at least 75% of estimated nutritinoal needs.
--- NOTE | 2017-06-10 04:25 | Progress Notes ---
DATE: 06/09/2017 SUBJECTIVE: Chart reviewed and the patient interviewed. Also, discussed the patient's condition with the staff and reviewed records and labs. The patient continued to be slightly confused and she is still paranoid. The patient also wants to be left alone and is still isolating herself and interacting minimally with others. She is still asking to go home and she has no specific plan for discharge. She is on the other hand compliant with taking her medications and the patient denies any side effects of medications. ASSESSMENT: The patient is still considered to be gravely disabled and is still psychotic. TREATMENT PLAN: Continue monitoring her behavior and her condition closely. Also, continue to work with the family in regards to discharge plans. It is my opinion that the patient is unable to return to live on her own at this time. JOB# [id number]
[2017-06-10] MEDS: Levothyroxine 0.1 Mg Tab PO SCH (06:45)
[2017-06-10] MEDS: Potassium Chloride 20 mEq ER Tab PO SCH ×2 (08:39→16:19)
[2017-06-10] MEDS: Pantoprazole 40 mg EC Tab PO SCH (08:39)
[2017-06-10] MEDS: Calcium Carb/Vit D 500 mg/200 U Tab PO SCH (08:40)
--- NOTE | 2017-06-10 19:24 | Progress Notes ---
DATE: 06/10/2017 SUBJECTIVE: Chart reviewed and the patient interviewed. Also, discussed the patient's condition with the staff and reviewed records and labs. The patient is still anxious and she is still confused. The patient also still has periods of irritability and agitation. The patient also is still having difficulty following directions. On the other hand, the patient is compliant with taking her medications and the patient denies any side effects of medications. The patient is still weak and still has unsteady gait. At the same time, the patient is cooperative and compliant with taking medications. ASSESSMENT: The patient is still considered to be gravely disabled and cannot live it her own. TREATMENT PLAN: We will continue Seroquel same dose. Also, continue to work on her discharge plans and placement issue and we will continue to follow up closely. JOB# [id number]
[2017-06-11] MEDS: Levothyroxine 0.1 Mg Tab PO SCH (06:50)
[2017-06-11] MEDS: Calcium Carb/Vit D 500 mg/200 U Tab PO SCH (09:02)
[2017-06-11] MEDS: Pantoprazole 40 mg EC Tab PO SCH (09:03)
[2017-06-11] MEDS: Potassium Chloride 20 mEq ER Tab PO SCH ×2 (09:03→17:36)
--- NOTE | 2017-06-11 21:37 | Progress Notes ---
DATE: 06/11/2017 SUBJECTIVE: Chart reviewed and the patient interviewed. Also discussed the patient's condition with the staff and reviewed records and labs. The patient is still isolating herself and she is still staying in her bed most of the time. She also is still forgetful and she is still confused. Also, her interaction with others is minimum. The patient also is isolative and is still having poor appetite. Otherwise, the patient seems to be less agitated and less psychotic. ASSESSMENT: The patient is still psychotic and seems to be more depressed. TREATMENT PLAN: We will continue monitoring her condition and her condition closely. Also, we will continue to work on her ineffective coping. Also, we will add Lexapro in a dose of 5 mg everyday and we will continue to follow up his condition and behavior closely. JOB# [id number]
[2017-06-12] MEDS: Levothyroxine 0.1 Mg Tab PO SCH (06:52)
[2017-06-12] MEDS: Escitalopram Oxalate 5 mg Tab PO SCH ×2 (09:39→09:40)
[2017-06-12] MEDS: Potassium Chloride 20 mEq ER Tab PO SCH ×2 (09:39→17:27)
[2017-06-12] MEDS: Pantoprazole 40 mg EC Tab PO SCH (09:39)
[2017-06-12] MEDS: Calcium Carb/Vit D 500 mg/200 U Tab PO SCH (09:40)
--- NOTE | 2017-06-12 11:33 | General Progress Note ---
Subjective - Review of Systems Service Date: 06/12/17 Subjective: awake and alert smiling and good mood more oriented Objective - Results Result Diagrams: 06/08/17 14:11 06/08/17 14:11 Recent Labs: Laboratory Last Values WBC 5.9 Th/cmm (4.8-10.8) D 06/08/17 14:11 RBC 2.46 Mil/cmm (3.80-5.20) L 06/08/17 14:11 Hgb 8.9 gm/dL (12-16) L 06/08/17 14:11 Hct 25.8 % (41.0-60) L 06/08/17 14:11 MCV 105.2 fl (81-100) H 06/08/17 14:11 MCH 36.4 pg (27.0-31.0) H 06/08/17 14:11 MCHC Differential 34.6 pg (28.0-36.0) 06/08/17 14:11 RDW 14.1 % (11.5-20.0) 06/08/17 14:11 Plt Count 237 Th/cmm (150-400) D 06/08/17 14:11 MPV 8.9 fl 06/08/17 14:11 Neutrophils % 63.3 % (40.0-80.0) 06/08/17 14:11 Lymphocytes % 25.8 % (20.0-50.0) 06/08/17 14:11 Monocytes % 10.0 % (2.0-10.0) 06/08/17 14:11 Eosinophils % 0.8 % (0.0-5.0) 06/08/17 14:11 Basophils % 0.1 % (0.0-2.0) 06/08/17 14:11 Sodium 136 mEq/L (136-145) 06/08/17 14:11 Potassium 3.9 mEq/L (3.5-5.1) 06/08/17 14:11 Chloride 111 mEq/L (98-107) H 06/08/17 14:11 Carbon Dioxide 17.7 mEq/L (21.0-31.0) L 06/08/17 14:11 Anion Gap 11.2 (7.0-16.0) 06/08/17 14:11 BUN 6 mg/dL (7-25) L 06/08/17 14:11 Creatinine 0.8 mg/dL (0.6-1.2) 06/08/17 14:11 Est GFR ( Amer) TNP 06/08/17 14:11 Est GFR (Non-Af Amer) TNP 06/08/17 14:11 BUN/Creatinine Ratio 7.5 06/08/17 14:11 Glucose 144 mg/dL (70-105) H 06/08/17 14:11 Calcium 8.9 mg/dL (8.6-10.3) 06/08/17 14:11 Total Bilirubin 1.4 mg/dL (0.3-1.0) H 06/08/17 14:11 AST 69 U/L (13-39) H 06/08/17 14:11 ALT 42 U/L (7-52) 06/08/17 14:11 Alkaline Phosphatase 146 U/L (34-104) H 06/08/17 14:11 Ammonia 39 umol/L (16-53) 06/03/17 13:00 Total Protein 6.8 gm/dL (6.0-8.3) 06/08/17 14:11 Albumin 2.8 gm/dL (3.7-5.3) L 06/08/17 14:11 Globulin 4.0 gm/dL 06/08/17 14:11 Albumin/Globulin Ratio 0.7 (1.0-1.8) L 06/08/17 14:11 - Physical Exam Vitals and I&O: Vital Signs Temp 97.8 F 06/12/17 06:34 Pulse 90 06/12/17 06:34 Resp 20 06/12/17 06:34 BP 132/77 06/12/17 06:34 Pulse Ox 96 06/12/17 06:34 Intake & Output 06/11/17 06/12/17 06/12/17 18:59 06:59 18:59 Intake Total 900 120 Balance 900 120 Intake: Oral 900 120 Other: # Voids 3 3 # Bowel Movements 1 Active Medications: Current Medications Acetaminophen (Tylenol) 650 mg PO Q4HR PRN PRN Reason: Temp above 100 Stop: 07/31/17 21:32 Last Admin: 06/06/17 05:57 Dose: 650 mg Al Hydrox/Mg Hydrox/Simethicone (Maalox) 30 ml PO Q4HR PRN PRN Reason: GI DISTRESS Stop: 07/31/17 21:32 Calcium/Vitamin D (Oscal W/Vitamin D) 1 tab PO DAILY [facility] Stop: 08/01/17 08:59 Last Admin: 06/12/17 09:40 Dose: 1 tab Escitalopram Oxalate (Lexapro) 5 mg PO DAILY DARIN PRN Reason: Protocol Stop: 08/10/17 08:59 Last Admin: 06/12/17 09:40 Dose: Not Given Ibuprofen (Motrin) 600 mg PO Q6HR PRN PRN Reason: Pain (Mild) Stop: 08/01/17 00:00 Last Admin: 06/12/17 02:23 Dose: 600 mg Levothyroxine Sodium (Synthroid) 0.1 mg PO QDAC [facility] Stop: 08/01/17 07:29 Last Admin: 06/12/17 06:52 Dose: 0.1 mg Magnesium Hydroxide (Milk Of Magnesia) 30 ml PO HS PRN PRN Reason: Constipation Megestrol Acetate (Megace) 40 mg PO DAILY D[facility]IN PRN Reason: Protocol Stop: 08/01/17 08:59 Last Admin: 06/12/17 09:40 Dose: 40 mg Pantoprazole Sodium (Protonix) 40 mg PO DAILY [facility] Stop: 08/01/17 08:59 Last Admin: 06/12/17 09:39 Dose: 40 mg Potassium Chloride (Klor-Con) 40 meq PO BID [facility] Stop: 08/01/17 08:59 Last Admin: 06/12/17 09:39 Dose: 40 meq Quetiapine Fumarate (Seroquel) 12.5 mg PO BID DARIN PRN Reason: Protocol Stop: 08/05/17 16:59 Last Admin: 06/12/17 09:39 Dose: 12.5 mg General: Alert, No acute distress HEENT: Atraumatic, PERRLA Neck: Supple, JVD Cardiovascular: Regular rate, Normal S1, Normal S2 Lungs: Clear to auscultation Abdomen: Bowel sounds, Soft Extremities: Edema Neurological: Cranial nerves 3-12 NL Psych/Mental Status: Mood NL Assessment/Plan - Assessment Assessment: s/p septic shock Etoh abuse hypothyroidism thrombocytopenia anemia abn LFT's encephalopathy - Plan Plan: cont current treatment awaiting blood test results d/w daughter Nutritional Asmnt/Malnutr-PDOC - Dietary Evaluation Malnutrition Findings (Please click <Entered> for more info): Nutritional Asmnt/Malnutrition Start: 06/08/17 18: 20 Text: Status: Complete Freq: Document 06/08/17 18:20 GSUN (Rec: 06/08/17 18:32 [email or web address] [email or web address]) Nutritional Asmnt/Malnutrition Patient General Information Nutritional Screening Diagnosis Diagnosis Unspecified psychosis Pertinent Medical Hx/Surgical Hx Rheumatoid arthritis, hypothyroidism, hx alcohol abuse, encephalopathy, s/p e coli bacteremia, s/p renal failure Subjective Information 77 year old female. Spoek to pt sitting in chair in rec room with all belongings with her. Pt appeared upset, expressed wanting to go home, ignored most of typewriter ribbon winder's questions. Avg PO intake 65% of meals since adm, meeting nutritinoal needs. Pt stated " I will not eat until I go home ," typewriter ribbon winder explained importance of nutrition and that meals will be provided even if pt does not wish to eat, pt nodded. Pt's daughter visits and brings food for pt. No muscle fat wasting noted. Current Diet Order/ Nutrition Support Regular Pertinent Medications Oscal W/Vitamin D, MOM, Megace , Protonix, Klor-Con, Seroquel Pertinent Labs Reviewed. Nutritional Hx/Data Height 1.45 m Height (Calculated Centimeters) 144.8 Current Weight (lbs) 49.895 kg Weight (Calculated Kilograms) 49.9 Weight (Calculated Grams) 30061.2 Weight Status Approriate GI Symptoms Skin Integrity/Comment: Vamshi 19. Skin intact. Current %PO Fair (50-74%) Estimated Nutritional Goals BEE in Kcals: Using Current wt Calories/Kcals/Kg CBW 110lb/50kg Kcals Calculated 1250-1500kcal (25-30kcal/kg) Protein: Using Current wt Protein Calculated 50g (1g/kg) Fluid: ml 1250-1500ml (1ml/kcal) Nutritional Problem 1. Problem Problem No nutritinoal problem at this time. Intervention/Recommendation Comments 1. Continue with current diet order. Avg PO intake is adequate. Expected Outcomes/Goals Expected Outcomes/Goals 1. PO intake continue to meet at least 75% of estimated nutritinoal needs.
--- NOTE | 2017-06-12 21:55 | Progress Notes ---
DATE: 06/12/2017 SUBJECTIVE: The patient seen, chart reviewed, discussed with staff. The patient is currently in the hospital, still feels is here because she is "sick," staying in her bed most of the time, periods of forgetfulness, some confusion noted, isolation, poor appetite; however, she seems less irritable and is more amenable to interview. ASSESSMENT: The patient is still depressed, withdrawn, concerns for her ability to care for herself at a lower level of care, still with ____, some confusion, irritability, suspicion, is highly guarded. PLAN: We will continue to monitor and given recent dose adjustments, we will continue medications at current dose. The patient does seem to be making some improvement, however. [facility]# [id number]
[2017-06-13] MEDS: Levothyroxine 0.1 Mg Tab PO SCH (06:32)
[2017-06-13] MEDS: Pantoprazole 40 mg EC Tab PO SCH (08:25)
[2017-06-13] MEDS: Potassium Chloride 20 mEq ER Tab PO SCH ×2 (08:25→16:14)
[2017-06-13] MEDS: Escitalopram Oxalate 5 mg Tab PO SCH (08:25)
[2017-06-13] MEDS: Calcium Carb/Vit D 500 mg/200 U Tab PO SCH (08:25)
--- NOTE | 2017-06-13 19:43 | General Progress Note ---
Subjective - Review of Systems Service Date: 06/14/17 Subjective: awake and alert more oriented daughter reports irritability Objective - Results Result Diagrams: 06/08/17 14:11 06/08/17 14:11 Recent Labs: Laboratory Last Values WBC 5.9 Th/cmm (4.8-10.8) D 06/08/17 14:11 RBC 2.46 Mil/cmm (3.80-5.20) L 06/08/17 14:11 Hgb 8.9 gm/dL (12-16) L 06/08/17 14:11 Hct 25.8 % (41.0-60) L 06/08/17 14:11 MCV 105.2 fl (81-100) H 06/08/17 14:11 MCH 36.4 pg (27.0-31.0) H 06/08/17 14:11 MCHC Differential 34.6 pg (28.0-36.0) 06/08/17 14:11 RDW 14.1 % (11.5-20.0) 06/08/17 14:11 Plt Count 237 Th/cmm (150-400) D 06/08/17 14:11 MPV 8.9 fl 06/08/17 14:11 Neutrophils % 63.3 % (40.0-80.0) 06/08/17 14:11 Lymphocytes % 25.8 % (20.0-50.0) 06/08/17 14:11 Monocytes % 10.0 % (2.0-10.0) 06/08/17 14:11 Eosinophils % 0.8 % (0.0-5.0) 06/08/17 14:11 Basophils % 0.1 % (0.0-2.0) 06/08/17 14:11 Sodium 136 mEq/L (136-145) 06/08/17 14:11 Potassium 3.9 mEq/L (3.5-5.1) 06/08/17 14:11 Chloride 111 mEq/L (98-107) H 06/08/17 14:11 Carbon Dioxide 17.7 mEq/L (21.0-31.0) L 06/08/17 14:11 Anion Gap 11.2 (7.0-16.0) 06/08/17 14:11 BUN 6 mg/dL (7-25) L 06/08/17 14:11 Creatinine 0.8 mg/dL (0.6-1.2) 06/08/17 14:11 Est GFR ( Amer) TNP 06/08/17 14:11 Est GFR (Non-Af Amer) TNP 06/08/17 14:11 BUN/Creatinine Ratio 7.5 06/08/17 14:11 Glucose 144 mg/dL (70-105) H 06/08/17 14:11 Calcium 8.9 mg/dL (8.6-10.3) 06/08/17 14:11 Total Bilirubin 1.4 mg/dL (0.3-1.0) H 06/08/17 14:11 AST 69 U/L (13-39) H 06/08/17 14:11 ALT 42 U/L (7-52) 06/08/17 14:11 Alkaline Phosphatase 146 U/L (34-104) H 06/08/17 14:11 Ammonia 39 umol/L (16-53) 06/03/17 13:00 Total Protein 6.8 gm/dL (6.0-8.3) 06/08/17 14:11 Albumin 2.8 gm/dL (3.7-5.3) L 06/08/17 14:11 Globulin 4.0 gm/dL 06/08/17 14:11 Albumin/Globulin Ratio 0.7 (1.0-1.8) L 06/08/17 14:11 - Physical Exam Vitals and I&O: Vital Signs Temp 98.1 F 06/13/17 16:29 Pulse 93 06/13/17 16:29 Resp 20 06/13/17 16:29 BP 124/64 06/13/17 16:29 Pulse Ox 96 06/13/17 16:29 Active Medications: Current Medications Acetaminophen (Tylenol) 650 mg PO Q4HR PRN PRN Reason: Temp above 100 Stop: 07/31/17 21:32 Last Admin: 06/06/17 05:57 Dose: 650 mg Al Hydrox/Mg Hydrox/Simethicone (Maalox) 30 ml PO Q4HR PRN PRN Reason: GI DISTRESS Stop: 07/31/17 21:32 Calcium/Vitamin D (Oscal W/Vitamin D) 1 tab PO DAILY [facility] Stop: 08/01/17 08:59 Last Admin: 06/13/17 08:25 Dose: 1 tab Escitalopram Oxalate (Lexapro) 5 mg PO DAILY [facility] PRN Reason: Protocol Stop: 08/10/17 08:59 Last Admin: 06/13/17 08:25 Dose: 5 mg Ibuprofen (Motrin) 600 mg PO Q6HR PRN PRN Reason: Pain (Mild) Stop: 08/01/17 00:00 Last Admin: 06/12/17 02:23 Dose: 600 mg Levothyroxine Sodium (Synthroid) 0.1 mg PO QDAC [facility] Stop: 08/01/17 07:29 Last Admin: 06/13/17 06:32 Dose: 0.1 mg Magnesium Hydroxide (Milk Of Magnesia) 30 ml PO HS PRN PRN Reason: Constipation Megestrol Acetate (Megace) 40 mg PO DAILY [facility] PRN Reason: Protocol Stop: 08/01/17 08:59 Last Admin: 06/13/17 08:25 Dose: 40 mg Pantoprazole Sodium (Protonix) 40 mg PO DAILY [facility] Stop: 08/01/17 08:59 Last Admin: 06/13/17 08:25 Dose: 40 mg Potassium Chloride (Klor-Con) 40 meq PO BID [facility] Stop: 08/01/17 08:59 Last Admin: 06/13/17 16:14 Dose: 40 meq Quetiapine Fumarate (Seroquel) 12.5 mg PO BID [facility] PRN Reason: Protocol Stop: 08/05/17 16:59 Last Admin: 06/13/17 16:13 Dose: 12.5 mg General: Alert, No acute distress HEENT: Atraumatic, PERRLA Neck: Supple, JVD Cardiovascular: Regular rate, Normal S1, Normal S2 Lungs: Clear to auscultation Abdomen: Bowel sounds, Soft Extremities: Edema Neurological: Cranial nerves 3-12 NL Psych/Mental Status: Mood NL Assessment/Plan - Assessment Assessment: s/p septic shock Etoh abuse hypothyroidism thrombocytopenia anemia abn LFT's encephalopathy - Plan Plan: cont current treatment blood test tomorrow d/w daughter at bedside Nutritional Asmnt/Malnutr-PDOC - Dietary Evaluation Malnutrition Findings (Please click <Entered> for more info): Nutritional Asmnt/Malnutrition Start: 06/08/17 18: 20 Text: Status: Complete Freq: Document 06/08/17 18:20 GSUN (Rec: 06/08/17 18:32 GSUN [email or web address]) Nutritional Asmnt/Malnutrition Patient General Information Nutritional Screening Diagnosis Diagnosis Unspecified psychosis Pertinent Medical Hx/Surgical Hx Rheumatoid arthritis, hypothyroidism, hx alcohol abuse, encephalopathy, s/p e coli bacteremia, s/p renal failure Subjective Information 77 year old female. Spoek to pt sitting in chair in rec room with all belongings with her. Pt appeared upset, expressed wanting to go home, ignored most of commercial loan underwriter's questions. Avg PO intake 65% of meals since adm, meeting nutritinoal needs. Pt stated " I will not eat until I go home ," commercial loan underwriter explained importance of nutrition and that meals will be provided even if pt does not wish to eat, pt nodded. Pt's daughter visits and brings food for pt. No muscle fat wasting noted. Current Diet Order/ Nutrition Support Regular Pertinent Medications Oscal W/Vitamin D, MOM, Megace , Protonix, Klor-Con, Seroquel Pertinent Labs Reviewed. Nutritional Hx/Data Height 1.45 m Height (Calculated Centimeters) 144.8 Current Weight (lbs) 49.895 kg Weight (Calculated Kilograms) 49.9 Weight (Calculated Grams) 87831.2 Weight Status Approriate GI Symptoms Skin Integrity/Comment: Vamshi 19. Skin intact. Current %PO Fair (50-74%) Estimated Nutritional Goals BEE in Kcals: Using Current wt Calories/Kcals/Kg CBW 110lb/50kg Kcals Calculated 1250-1500kcal (25-30kcal/kg) Protein: Using Current wt Protein Calculated 50g (1g/kg) Fluid: ml 1250-1500ml (1ml/kcal) Nutritional Problem 1. Problem Problem No nutritinoal problem at this time. Intervention/Recommendation Comments 1. Continue with current diet order. Avg PO intake is adequate. Expected Outcomes/Goals Expected Outcomes/Goals 1. PO intake continue to meet at least 75% of estimated nutritinoal needs.
--- NOTE | 2017-06-13 20:02 | Progress Notes ---
DATE: 06/13/2017 SUBJECTIVE: The patient seen, chart reviewed, discussed with staff. The patient remains somewhat confused, disoriented. She is calm at this time and it is unclear what her discharge plan is, concerns for grave disability, concerns for her ability to care for herself, still feels that she is "sick," with periods of forgetfulness, and poor appetite. She is taking her medications, no side effects. She remains isolative and guarded. ASSESSMENT: The patient remains depressed, withdrawn, concerns for her ability to care for her basic needs, confusion noted, and some irritability. PLAN: We will continue to monitor. The patient does seem to be making some improvements, but her symptoms are ongoing. We will recommend coordination of care with the social work msw regarding a safe discharge plan and good psychiatric followup. [facility]# [id number]
[2017-06-14] MEDS: Levothyroxine 0.1 Mg Tab PO SCH (06:34)
[2017-06-14 06:50] LABS: % BASOPHILS 0.5 % (0.0-2.0); % EOSINOPHILS 3.8 % (0.0-5.0); % LYMPHOCYTES 41.2 % (20.0-50.0); % NEUTROPHILS 45.5 % (40.0-80.0); HEMATOCRIT 25.1 % (41.0-60); HEMOGLOBIN 8.5 gm/dL (12-16); MEAN CELL VOLUME 104.3 fl (81-100); MEAN CORPUSCULAR HEMOGLOBIN 35.3 pg (27.0-31.0); MEAN CORPUSCULAR HGB CONC 33.8 pg (28.0-36.0); MEAN PLATELET VOLUME 8.3 fl; NEUTROPHILE ABSOLUTE 2.8 Th/cmm (1.8-8.0); PLATELET COUNT 237 Th/cmm (150-400); RED CELL DISTRIBUTION WIDTH 12.6 % (11.5-20.0); WHITE BLOOD COUNT 5.9 Th/cmm (4.8-10.8)
[2017-06-14 07:13] LABS: ALB/GLOB RATIO 0.7 (1.0-1.8); ALKALINE PHOSPHATASE 102 U/L (34-104); ANION GAP 10.9 (7.0-16.0); BUN - UREA NITROGEN 10 mg/dL (7-25); BUN/CREATININE RATIO 12.5; CARBON DIOXIDE 17.9 mEq/L (21.0-31.0); CHLORIDE 115 mEq/L (98-107); CREATININE - SERUM 0.8 mg/dL (0.6-1.2); GLUCOSE 91 mg/dL (70-105); POTASSIUM SERUM 3.8 mEq/L (3.5-5.1); SGOT 67 U/L (13-39); SGPT/ALT 35 U/L (7-52); SODIUM SERUM 140 mEq/L (136-145)
[2017-06-14] MEDS: Pantoprazole 40 mg EC Tab PO SCH ×2 (09:06→18:11)
[2017-06-14] MEDS: Calcium Carb/Vit D 500 mg/200 U Tab PO SCH (09:07)
--- NOTE | 2017-06-14 19:51 | Progress Notes ---
DATE: 06/14/2017 SUBJECTIVE: Chart reviewed and the patient interviewed. Also discussed the patient's condition with the staff and reviewed records and labs. The patient is still confused and anxious. The patient also is still not able to give any safe plan for her self-care and stated that she thinks she can go back to live in her place. The patient also is still having mood swings. Otherwise, the patient is compliant with taking her medications and cooperative with her treatment. She also is still having severe level of depression. The patient also still needs lots of redirections. She also feels hopeless and helpless. During interview, the patient is distracted and has difficulty with concentration. She also seems to be preoccupied. ASSESSMENT: The patient is still considered to be gravely disabled and is still psychotic. TREATMENT PLAN: Continue Seroquel 12.5 mg twice a day and we will increase Lexapro to 10 mg every day and will continue to follow up closely. [facility]# [id number]
--- NOTE | 2017-06-14 20:30 | Internal Medicine Prog Note ---
Internal Medicine Subjective - Subjective Service Date: 06/14/17 Patient seen and examined:: with staff Patient is:: awake, verbal, talking Per staff patient has:: no adverse event Internal Medicine Objective - Results Result Diagrams: 06/14/17 06:40 06/14/17 06:40 Recent Labs: Laboratory Last Values WBC 5.9 Th/cmm (4.8-10.8) 06/14/17 06:40 RBC 2.40 Mil/cmm (3.80-5.20) L 06/14/17 06:40 Hgb 8.5 gm/dL (12-16) L 06/14/17 06:40 Hct 25.1 % (41.0-60) L 06/14/17 06:40 MCV 104.3 fl (81-100) H 06/14/17 06:40 MCH 35.3 pg (27.0-31.0) H 06/14/17 06:40 MCHC Differential 33.8 pg (28.0-36.0) 06/14/17 06:40 RDW 12.6 % (11.5-20.0) 06/14/17 06:40 Plt Count 237 Th/cmm (150-400) 06/14/17 06:40 MPV 8.3 fl 06/14/17 06:40 Neutrophils % 45.5 % (40.0-80.0) 06/14/17 06:40 Lymphocytes % 41.2 % (20.0-50.0) 06/14/17 06:40 Monocytes % 9.0 % (2.0-10.0) 06/14/17 06:40 Eosinophils % 3.8 % (0.0-5.0) 06/14/17 06:40 Basophils % 0.5 % (0.0-2.0) 06/14/17 06:40 Sodium 140 mEq/L (136-145) 06/14/17 06:40 Potassium 3.8 mEq/L (3.5-5.1) 06/14/17 06:40 Chloride 115 mEq/L (98-107) H 06/14/17 06:40 Carbon Dioxide 17.9 mEq/L (21.0-31.0) L 06/14/17 06:40 Anion Gap 10.9 (7.0-16.0) 06/14/17 06:40 BUN 10 mg/dL (7-25) 06/14/17 06:40 Creatinine 0.8 mg/dL (0.6-1.2) 06/14/17 06:40 Est GFR ( Amer) TNP 06/14/17 06:40 Est GFR (Non-Af Amer) TNP 06/14/17 06:40 BUN/Creatinine Ratio 12.5 06/14/17 06:40 Glucose 91 mg/dL (70-105) 06/14/17 06:40 Calcium 9.0 mg/dL (8.6-10.3) 06/14/17 06:40 Total Bilirubin 1.0 mg/dL (0.3-1.0) 06/14/17 06:40 AST 67 U/L (13-39) H 06/14/17 06:40 ALT 35 U/L (7-52) 06/14/17 06:40 Alkaline Phosphatase 102 U/L (34-104) 06/14/17 06:40 Ammonia 41 umol/L (16-53) 06/14/17 06:40 Total Protein 6.7 gm/dL (6.0-8.3) 06/14/17 06:40 Albumin 2.8 gm/dL (3.7-5.3) L 06/14/17 06:40 Globulin 3.9 gm/dL 06/14/17 06:40 Albumin/Globulin Ratio 0.7 (1.0-1.8) L 06/14/17 06:40 - Physical Exam Vitals and I&O: Vital Signs Temp 98 F 06/14/17 15:24 Pulse 95 06/14/17 15:24 Resp 20 06/14/17 15:24 BP 128/60 06/14/17 15:24 Pulse Ox 96 06/14/17 15:24 Intake & Output 06/14/17 06/14/17 06/15/17 06:59 18:59 06:59 Intake Total 360 800 Balance 360 800 Intake: Oral 360 800 Other: # Voids 2 3 # Bowel Movements 0 1 Active Medications: Current Medications Acetaminophen (Tylenol) 650 mg PO Q4HR PRN PRN Reason: Temp above 100 Stop: 07/31/17 21:32 Last Admin: 06/06/17 05:57 Dose: 650 mg Al Hydrox/Mg Hydrox/Simethicone (Maalox) 30 ml PO Q4HR PRN PRN Reason: GI DISTRESS Stop: 07/31/17 21:32 Calcium/Vitamin D (Oscal W/Vitamin D) 1 tab PO DAILY DARIN Stop: 08/01/17 08:59 Last Admin: 06/14/17 09:07 Dose: 1 tab Escitalopram Oxalate (Lexapro) 10 mg PO DAILY DARIN PRN Reason: Protocol Stop: 08/10/17 08:59 Last Admin: 06/14/17 09:06 Dose: 10 mg Ibuprofen (Motrin) 600 mg PO Q6HR PRN PRN Reason: Pain (Mild) Stop: 08/01/17 00:00 Last Admin: 06/12/17 02:23 Dose: 600 mg Levothyroxine Sodium (Synthroid) 0.1 mg PO QDAC [facility] Stop: 08/01/17 07:29 Last Admin: 06/14/17 06:34 Dose: 0.1 mg Magnesium Hydroxide (Milk Of Magnesia) 30 ml PO HS PRN PRN Reason: Constipation Pantoprazole Sodium (Protonix) 40 mg PO DAILY [facility] Stop: 08/01/17 08:59 Last Admin: 06/14/17 18:11 Dose: Not Given Quetiapine Fumarate (Seroquel) 12.5 mg PO BID DARIN PRN Reason: Protocol Stop: 08/05/17 16:59 Last Admin: 06/14/17 16:34 Dose: 12.5 mg General: alert HEENT: NC/AT, PERRLA, EOMI, anicteric sclerae, throat clear Neck: Supple, No JVD, No thyromegaly, +2 carotid pulse wo bruit, No LAD Lungs: CTAB Cardiovascular: RRR, Normal S1, Normal S2, without murmur Abdomen: soft, non-tender, non-distended Extremities: clear Neurological: no change Internal Medicine Assmt/Plan - Assessment Assessment: 1.HYPOTHYROIDISIM. 2.ANEMIA. \\3.PSYCHOSIS. - Plan Plan: CONTINUE ON CURRENT MEDICATION AND DIET. Nutritional Asmnt/Malnutr-PDOC - Dietary Evaluation Malnutrition Findings (Please click <Entered> for more info): Nutritional Asmnt/Malnutrition Start: 06/08/17 18: 20 Text: Status: Complete Freq: Document 06/08/17 18:20 GSUN (Rec: 06/08/17 18:32 GSUN [email or web address]) Nutritional Asmnt/Malnutrition Patient General Information Nutritional Screening Diagnosis Diagnosis Unspecified psychosis Pertinent Medical Hx/Surgical Hx Rheumatoid arthritis, hypothyroidism, hx alcohol abuse, encephalopathy, s/p e coli bacteremia, s/p renal failure Subjective Information 77 year old female. Spoek to pt sitting in chair in rec room with all belongings with her. Pt appeared upset, expressed wanting to go home, ignored most of check writer's questions. Avg PO intake 65% of meals since adm, meeting nutritinoal needs. Pt stated " I will not eat until I go home ," check writer explained importance of nutrition and that meals will be provided even if pt does not wish to eat, pt nodded. Pt's daughter visits and brings food for pt. No muscle fat wasting noted. Current Diet Order/ Nutrition Support Regular Pertinent Medications Oscal W/Vitamin D, MOM, Megace , Protonix, Klor-Con, Seroquel Pertinent Labs Reviewed. Nutritional Hx/Data Height 1.45 m Height (Calculated Centimeters) 144.8 Current Weight (lbs) 49.895 kg Weight (Calculated Kilograms) 49.9 Weight (Calculated Grams) 46167.2 Weight Status Approriate GI Symptoms Skin Integrity/Comment: Vamshi 19. Skin intact. Current %PO Fair (50-74%) Estimated Nutritional Goals BEE in Kcals: Using Current wt Calories/Kcals/Kg CBW 110lb/50kg Kcals Calculated 1250-1500kcal (25-30kcal/kg) Protein: Using Current wt Protein Calculated 50g (1g/kg) Fluid: ml 1250-1500ml (1ml/kcal) Nutritional Problem 1. Problem Problem No nutritinoal problem at this time. Intervention/Recommendation Comments 1. Continue with current diet order. Avg PO intake is adequate. Expected Outcomes/Goals Expected Outcomes/Goals 1. PO intake continue to meet at least 75% of estimated nutritinoal needs.
[2017-06-15] MEDS: Levothyroxine 0.1 Mg Tab PO SCH (06:42)
--- NOTE | 2017-06-15 08:27 | Discharge Summary ---
DATE OF DISCHARGE: 06/15/2017 AGE: 77. SEX: Female. PHYSICIAN: Dr. Dunn. FINAL DIAGNOSES: PRIMARY DIAGNOSIS: Unspecified psychosis. SECONDARY DIAGNOSIS: Depressive mood disorder with psychotic features. REASON FOR HOSPITALIZATION: The patient was admitted to the hospital from [facility] because of confusion, agitation, and irritability. HOSPITAL COURSE: The patient continued to be confused and agitated. The patient also was needing lots of redirections. The patient also was resisting care. She also was interacting minimally with others. The patient also was feeling hopeless at times and she wanted to be left alone. Gradually, the patient's affect was brighter. The patient was less agitated and less irritable. She also was compliant with taking her medications and the patient was started on Lexapro that increased to 10 mg every day and also she continued to take Seroquel in a dose of 12.5 mg everyday. The patient was weak and she was unable to provide any safe plan for self-care and the patient accepted by [facility] in order to have physical therapy. PHYSICAL EXAMINATION: Physical exam of the patient was done by and the patient was monitored closely while in the hospital. The patient is status post Escherichia coli bacteremia and also renal failure and also abnormal liver function tests, as well as hypothyroidism, and severe protein malnutrition because the patient was not eating appropriately, that is one of the reasons that the patient went into [facility] to continue her treatment. LABS: No major abnormal labs. AFTER DISCHARGE PLANS: The patient was discharged from the hospital and went to [facility] with plans for outpatient treatment and follow up there. EXPECTED OUTCOME AFTER DISCHARGE: Fair, if the patient continues with her treatment and continues to take her psychotropic medications. [facility]# [id number]
[2017-06-15] MEDS: Calcium Carb/Vit D 500 mg/200 U Tab PO SCH (08:48)
[2017-06-15] MEDS: Pantoprazole 40 mg EC Tab PO SCH (08:49)
== END 2017-06-15 11:35 | DRG 885 ==
LOC: GERO 20:18
PROVIDERS: ADMIT Psychiatry & Neurology Psychiatry; ATTEND Psychiatry & Neurology Psychiatry
DX: F29 Unspecified psychosis not due to a substance or known physiological condition (principal); E43 Unspecified severe protein-calorie malnutrition; G93.40 Encephalopathy, unspecified; D69.6 Thrombocytopenia, unspecified; M06.9 Rheumatoid arthritis, unspecified; F32.3 Major depressive disorder, single episode, severe with psychotic features; B17.9 Acute viral hepatitis, unspecified; E03.9 Hypothyroidism, unspecified; F10.10 Alcohol abuse, uncomplicated; Z68.23 Body mass index [BMI] 23.0-23.9, adult
CPT/HCPCS: 36415-UA; 80053-TC; 82140-TC; 85025-TC; 97530; X3904; Z7610